=== PATIENT | male | born 1955 | race Caucasian/White ===

== ENCOUNTER 2017-10-17 10:51 | Emergency (ER) | payer MEDICAID ==
[~2017-10-17] VITALS: Ht 172.7 cm; Wt 70.7 kg
[2017-10-17 11:02] VITALS: BP 136/83; PULSE 93; RESP 18; TEMP 97.9; O2SAT 97
[2017-10-17] MEDS ORDERED: HYDR-755 PO (11:17)
[2017-10-17] MEDS ORDERED: ZOLO100T PO (11:17)
[2017-10-17] MEDS ORDERED: LEVE250 PO (11:17)
[2017-10-17] MEDS ORDERED: ATOR10TA15 PO (11:17)
[2017-10-17] MEDS ORDERED: DIFL150T PO (11:33)
[2017-10-17] MEDS ORDERED: MAGICADU2 SWISH-SWAL (11:33)
--- NOTE | 2017-10-17 11:37 | PD ---
HPI Chief Complaint: Oral / Dental Pain or Problem Time Seen by Provider: 11:14 Travel History International Travel<30 days: No Contact w/Intl Traveler<30days: No Traveled to known affect area: No History of Present Illness HPI 61-year-old male with history of oral thrush presents emergency department complaining of mouth burning and tongue swelling that started a couple of days ago. Says that he has had mouth pain for 2 years after significant head injury and has taken medications previously which have helped resolve some of his burning. Patient says that this episode started with a white line down the back of his throat and has spread to the tongue. He denies shortness of breath , drooling, trouble swallowing. He denies fevers or chills. Denies cough. Denies neck pain. Patient says his previous primary care physician was Dr. Block however, he is due to see his new primary care physician soon however, he does not have a follow-up in some time. He denies any new trauma. PFSH Past Medical History Anxiety: Yes Depression: Yes High Cholesterol: Yes Seizures: Yes Influenza Vaccination: No Past Surgical History Neurologic Surgery: Yes (PLATE IN HEAD) Social History Alcohol Use: No Tobacco Use: Yes (/2 PPD) Substance Use: No Allergies-Medications (Allergen,Severity, Reaction): Coded Allergies: Penicillins (Verified Allergy, Intermediate, GI UPSET, 10/17/17) Reported Meds & Prescriptions Reported Meds & Active Scripts Active Diflucan (Fluconazole) 150 Mg Tab 150 Mg PO ONCE Magic Mouthwash Adult Liq (Multi-Ingredient Mouthwash/Gargle) 120 Ml Susp 5 Ml SWISH-SWAL ACHS 7 Days Each 5mL contains: Nystatin 200,000units, Diphenhydramine 4.25mg, Viscous Lidocaine 10mg, Dawson syrup 0.8 mL Reported Zoloft (Sertraline HCl) 100 Mg Tab 100 Mg PO DAILY Keppra (Levetiracetam) 250 Mg Tab 250 Mg PO BID Hydroxyzine HCl 10 Mg Tab 10 Mg PO Q6HR PRN Atorvastatin (Atorvastatin Calcium) 10 Mg Tab 10 Mg PO HS Review of Systems Except as stated in HPI: all other systems reviewed are Neg Physical Exam Narrative GENERAL: Well-developed well-nourished no apparent distress SKIN: Focused skin assessment warm/dry. HEAD: Left temporal area with deformity, normal per patient. Normocephalic. EYES: Pupils equal and round. No scleral icterus. No injection or drainage. Left eye lateral gaze, normal per pt. ENT: No nasal bleeding or discharge. Mucous membranes pink and moist. Tongue with a white film. No pharyngeal injection or hypertrophy. NECK: Trachea midline. No JVD. No lymphadenopathy CARDIOVASCULAR: Regular rate and rhythm. No murmur appreciated. RESPIRATORY: No accessory muscle use. Clear to auscultation. Breath sounds equal bilaterally. MUSCULOSKELETAL: No obvious deformities. No clubbing. No cyanosis. No edema. NEUROLOGICAL: Awake and alert. No obvious cranial nerve deficits. Motor grossly within normal limits, weakness on the right, normal per patient. Normal speech. PSYCHIATRIC: Appropriate mood and affect; insight and judgment normal. Data Data Last Documented VS Vital Signs Date Time Temp Pulse Resp B/P (MAP) Pulse Ox O2 Delivery O2 Flow Rate FiO2 10/17/17 11:02 97.9 93 18 136/83 (100) 97 Orders Orders Ed Discharge Order (10/17/17 11:38) [facility] Medical Decision Making Medical Screen Exam Complete: Yes Emergency Medical Condition: Yes Differential Diagnosis Oral candidiasis, pharyngeal candidiasis, esophageal candidiasis Narrative Course 61-year-old male with history of oral thrush presents emergency department complaining of mouth burning and tongue swelling that started a couple of days ago. Says that he has had mouth pain for 2 years after significant head injury and has taken medications previously which have helped resolve some of his burning. Patient says that this episode started with a white line down the back of his throat and has spread to the tongue. He denies shortness of breath , drooling, trouble swallowing. He denies fevers or chills. Denies cough. Denies neck pain. Patient says his previous primary care physician was Dr. Block however, he is due to see his new primary care physician soon however, he does not have a follow-up in some time. He denies any new trauma. Vital signs are stable. His exam findings consistent with oral candidiasis. His tongue has a white film. I do not appreciate the swelling that he mentions. Patient be discharged with Diflucan and Magic mouthwash. He is strongly advised to follow-up with his primary care physician for further evaluation. Consider gear cutting machine operator or neurologist as he says this burning has been present since his head injury and may require further evaluation by a neurologist. Diagnosis Primary Impression: Thrush Referrals: Ear / Nose / Throat Specialist Primary Care Physician Additional Instructions: Take all medications as prescribed. Follow-up the primary care physician for further evaluation and treatment. Consider gear cutting machine operator as well. Scripts Fluconazole (Diflucan) 150 Mg Tab 150 MG PO ONCE for Infection, #1 TAB 0 Refills Prov: Everardo Reyes MD 10/17/17 Iickiatn-Hyhwbaxopmckcmv-Xxkvgtqpr Liq (Magic Mouthwash Adult Liq) 120 Ml Susp 5 ML SWISH-SWAL ACHS for Mouth sores for 7 Days, #120 ML 0 Refills Each 5mL contains: Nystatin 200,000units, Diphenhydramine 4.25mg, Viscous Lidocaine 10mg, Dawson syrup 0.8 mL Prov: Everardo Reyes MD 10/17/17 Disposition: 01 DISCHARGE HOME Condition: Stable Ana Rust October 17, 2017 11:37
== END 2017-10-17 12:12 | disposition home or self-care (01) ==
LOC: PHEFT 10:51
DX: B37.9 Candidiasis, unspecified (principal); F41.9 Anxiety disorder, unspecified; F32.9 Major depressive disorder, single episode, unspecified; E78.00 Pure hypercholesterolemia, unspecified; F17.200 Nicotine dependence, unspecified, uncomplicated; Z86.69 Personal history of other diseases of the nervous system and sense organs; Z79.899 Other long term (current) drug therapy; Z88.0 Allergy status to penicillin
CPT/HCPCS: 99283